=== PATIENT | female | born 1980 | race American Indian/Alaskan Native ===

== ENCOUNTER 2018-06-03 12:38 | Inpatient (IN) | payer MEDICAID ==
[2018-06-03 14:30] LABS: Bilirubin,Urine NEG (Negative); Blood,Urine NEG (Negative); Color,Urine Yellow (Yellow); Mucus,Urine FEW /HPF; Urobilinogen,Urine < 2.0 mg/dL (<2.0)
[2018-06-03 15:58] LABS: Hematocrit 34.6 % (30.3-42.9); Mean Corpuscular HGB Conc 35 % (30-34); Mean Corpuscular Hemoglobin 29 pg (28-32); Mean Corpuscular Volume 85 fl (79-97); Platelet Count 197 K/mm3 (140-440); Red Blood Count 4.07 M/mm3 (3.65-5.03); Red Cell Distribution Width 14.4 % (13.2-15.2)
[2018-06-03 16:13] LABS: Alanine Aminotransferase 41 units/L (7-56)
[2018-06-03] MEDS ORDERED: CALCIUM GLUCONATE IV ONE (17:32)
[2018-06-03] MEDS ORDERED: APRESOLINE IV PRN (17:32)
[2018-06-03] MEDS ORDERED: LACTATED RINGERS 1,000 ML IV SCH (18:00)
[2018-06-03] MEDS ORDERED: PITOCin/NS 20 UNIT/1000ML DRIP 20 UNITS/1,000 ML BAG IV SCH (18:00)
--- NOTE | 2018-06-03 18:00 | History and Physical Report ---
History of Present Illness Date of examination: 06/03/18 Date of admission: 06/03/18 Chief complaint: Patient is a patient of . She is a 37 yo at 35+6 weeks with hx of chronic HTN on baby asa. She has seen [facility] for morbid obesity and AMA. Her GBS +. She has gestational diabetes on Metformin. She was sent over by Dr. Ocasio with elevated BP 150-160/100 Past History Past Medical History: no pertinent history Past Surgical History: no surgical history Family/Genetic History: heart disease, hypertension, other (emphysema ) Social history: single. denies: smoking, alcohol abuse, prescription drug abuse - Obstetrical History Expected Date of Delivery: 07/02/18 Actual Gestation: 35 Week(s) 6 Day(s) : 4 Para: 2 Hx # Term Pregnancies: 2 Number of Pregnancies: 0 Spontaneous Abortions: 1 Induced : 0 Number of Living Children: 2 Medications and Allergies Allergies Allergy/AdvReac Type Severity Reaction Status Date / Time No Known Allergies Allergy Verified 09/08/13 12:49 Home Medications Medication Instructions Recorded Confirmed Last Taken Type ALBUTEROL Inhaler (OR & NICU) 2 puff IH QID PRN #1 inh 09/08/13 Unknown Rx [ProAir HFA Inhaler] Guaifenesin/Codeine Phosphate 10 ml PO QID PRN #4 oz 09/08/13 Unknown Rx [Cheratussin AC Syrup] predniSONE [Deltasone] 50 mg PO QDAY #3 tab 09/08/13 Unknown Rx Active Meds: Active Medications Calcium Gluconate (Calcium Gluconate) 1,000 mg IV ONCE ONE Stop: 06/03/18 17:33 Hydralazine HCl (Apresoline) 5 mg IV Q30MIN PRN PRN Reason: Hypertension Lactated Ringer's (Lactated Ringers) 1,000 mls @ 125 mls/hr IV DIRECT DAVID Magnesium Sulfate (Magnesium Sulfate 40gm/1000ml) 40 gm in 1,000 mls @ 25 mls/ hr IV DIRECT DAVID Magnesium Sulfate (Magnesium Sulfate 4gm/100ml) 4 gm in 100 mls @ 300 mls/hr IV ONCE ONE Stop: 06/03/18 17:51 Oxytocin/Sodium Chloride (Pitocin/Ns 20 Unit/1000ml Drip) 20 units in 1,000 mls @ 0 mls/hr IV TITR DAVID Labetalol HCl (Normodyne) 200 mg PO BID DAVID Review of Systems All systems: negative - Vital Signs Vital signs: Vital Signs Pulse BP 94 H 169/93 06/03/18 13:49 06/03/18 13:49 Temp Pulse Resp BP Pulse Ox 92 H 139/109 06/03/18 17:49 06/03/18 17:49 - Physical Exam Breasts: Positive: normal Cardiovascular: Regular rate, Normal S1 Lungs: Positive: Clear to auscultation, Normal air movement Abdomen: Positive: normal appearance, soft, normal bowel sounds. Negative: distention, tenderness, guarding Genitourinary (Female): Positive: normal external genitalia, normal perenium Vagina: Positive: normal moisture Uterus: Positive: normal size, normal contour Anus/Rectum: Positive: normal perianal skin Deep Tendon Reflex Grade: Normal +2 - Obstetrical FHR: category 1 Results Result Diagrams: 06/03/18 15:16 06/03/18 15:16 Abnormal lab results 06/03/18 06/03/18 Range/Units 15:16 15:16 MCHC 35 H (30-34) % Creatinine 0.6 L (0.7-1.2) mg/dL Lactate Dehydrogenase 248 H (91-180) units/L All other labs normal. Assessment and Plan A/P IUP 35+6 weeks chronic HTN assess for preee 24hr urine collection PIH labs US with BPP and MIKE consult with JAYLENE
[2018-06-03] MEDS ORDERED: MAGNESIUM SULFATE 40GM/1000ML 40 GM/1,000 ML BAG IV SCH (18:30)
[2018-06-03] MEDS ORDERED: MAGNESIUM SULFATE 4GM/100ML 4 GM/100 ML BAG IV ONE (18:32)
[2018-06-03] MEDS ORDERED: CALCIUM GLUCONATE 1,000 MG in NACL 0.9% 100 ML IV ONE (19:00)
[2018-06-03] MEDS ORDERED: BRETHINE IVP ONE (21:07)
--- NOTE | 2018-06-03 21:16 | Ultrasound Report ---
FINAL REPORT EXAM: US OB BPP WO NON-STRESS HISTORY: elevated BP at 35 weeks evaluation of biophysical profile. TECHNIQUE: Grayscale, color flow and M-mode imaging for the purpose of evaluation of biophysical profile. FINDINGS: There is demonstration of a single intrauterine gestation in cephalic position. heart rate is measured at 142 beats per minute. Biophysical profile: breathing movements score 2 movement score 2 posture and tone score 2 Qualitative amniotic fluid volume score 2 IMPRESSION: 1. Single intrauterine gestation in cephalic position with heart rate measured at 142 beats per minute. 2. Biophysical profile 04/24.
[2018-06-03 21:17] LABS: Hematocrit 37.2 % (30.3-42.9); Hemoglobin 12.7 gm/dl (10.1-14.3); Mean Corpuscular HGB Conc 34 % (30-34); Mean Corpuscular Hemoglobin 29 pg (28-32); Mean Corpuscular Volume 85 fl (79-97); Platelet Count 219 K/mm3 (140-440); Red Blood Count 4.36 M/mm3 (3.65-5.03); Red Cell Distribution Width 14.5 % (13.2-15.2)
--- NOTE | 2018-06-03 21:19 | Ultrasound Report ---
FINAL REPORT EXAM: US OB > = 14 WK FETUS ADD GEST HISTORY: elevated BP at 35 weeks TECHNIQUE: Grayscale, color flow and M-mode imaging was performed for evaluation of MIKE. Comparison: Biophysical profile also performed today FINDINGS: Demonstration of a single intrauterine gestation cephalic position with heart rate measured at 139 beats per minute. MIKE is measured at 13.7 centimeters. IMPRESSION: 1. Single intrauterine gestation in cephalic position with heart rate measured at 139 beats per minute. 2. MIKE is measured at 13.7 centimeters.
[2018-06-03] MEDS ORDERED: AMBIEN PO PRN (21:29)
[2018-06-03] MEDS ORDERED: XYLOCAINE TOPICAL 2% 30ML TP ONE (21:42)
[2018-06-03 21:49] LABS: Alanine Aminotransferase 44 units/L (7-56)
[2018-06-03] MEDS ORDERED: VALTREX PO SCH (22:00)
[2018-06-03] MEDS: NORMODYNE PO SCH (22:21)
[2018-06-03 23:33] LABS: Uric Acid 5.6 mg/dL (3.5-7.6)
--- NOTE | 2018-06-04 08:11 | Consultation ---
History of Present Illness - Reason for Consult Consult date: 06/04/18 Past History Social history: single. denies: smoking, alcohol abuse, prescription drug abuse Medications and Allergies Allergies Allergy/AdvReac Type Severity Reaction Status Date / Time No Known Allergies Allergy Verified 09/08/13 12:49 Home Medications Medication Instructions Recorded Confirmed Last Taken Type ALBUTEROL Inhaler (OR & NICU) 2 puff IH QID PRN #1 inh 09/08/13 Unknown Rx [ProAir HFA Inhaler] Guaifenesin/Codeine Phosphate 10 ml PO QID PRN #4 oz 09/08/13 Unknown Rx [Cheratussin AC Syrup] predniSONE [Deltasone] 50 mg PO QDAY #3 tab 09/08/13 Unknown Rx Active Meds: Active Medications Hydralazine HCl (Apresoline) 5 mg IV Q30MIN PRN PRN Reason: Hypertension Lactated Ringer's (Lactated Ringers) 1,000 mls @ 125 mls/hr IV DIRECT DAVID Last Admin: 06/04/18 04:01 Dose: 125 mls/hr Magnesium Sulfate (Magnesium Sulfate 40gm/1000ml) 40 gm in 1,000 mls @ 25 mls/ hr IV DIRECT DAVID Last Admin: 06/03/18 21:33 Dose: 1 gm/hr, 25 mls/hr Labetalol HCl (Normodyne) 200 mg PO BID DAVID Last Admin: 06/03/18 22:21 Dose: 200 mg Metformin HCl (Glucophage) 500 mg PO BIDDIAB DAVID Valacyclovir HCl (Valtrex) 500 mg PO BID DAVID Zolpidem Tartrate (Ambien) 10 mg PO QHS PRN PRN Reason: Insomnia Last Admin: 06/03/18 22:22 Dose: 10 mg Exam - Constitutional Vitals: Temp Pulse Resp BP Pulse Ox 98.1 F 81 18 147/84 95 06/04/18 07:30 06/04/18 08:07 06/04/18 07:30 06/04/18 07:30 06/04/18 08:07 Results - Labs CBC & Chem 7: 06/03/18 20:56 06/03/18 20:56 Labs: Abnormal lab results 06/03/18 06/03/18 06/03/18 Range/Units 15:16 15:16 20:56 MCHC 35 H (30-34) % Creatinine 0.6 L 0.6 L (0.7-1.2) mg/dL Magnesium (1.7-2.3) mg/dL Lactate Dehydrogenase 248 H 246 H (91-180) units/L // Range/Units 04:03 MCHC (30-34) % Creatinine (0.7-1.2) mg/dL Magnesium 4.00 H (1.7-2.3) mg/dL Lactate Dehydrogenase (91-180) units/L Assessment and Plan Pt. seen. No additional recommendations at this time. Full note to follow in paper chart.
[2018-06-04] MEDS: GLUCOPHAGE PO SCH ×2 (09:11→16:52)
[2018-06-04] MEDS: VALTREX PO SCH (10:52)
[2018-06-04] MEDS: NORMODYNE PO SCH ×2 (10:52→22:00)
[2018-06-04] MEDS ORDERED: SUBLIMAZE IV ONE (13:00)
[2018-06-05] MEDS: VALTREX PO SCH ×2 (02:50→10:29)
[2018-06-05] MEDS: GLUCOPHAGE PO SCH (08:18)
[2018-06-05] MEDS: NORMODYNE PO SCH (10:29)
--- NOTE | 2018-06-05 10:46 | Progress Note ---
Assessment and Plan IMP: 1. IUP 36w1d 2. CHTN--with superimposed preeclampsia 3. GDM--on meformin REC: Delivery is recommended secondary to severe (by BPs) preeclampsia. The delivery recommendations were reviewed with Dr Ocasio Subjective - Subjective Interval history: The patient states she is doing well and has no current complaints. She denies headaches, visual changes, chest pain, SOB or RUQ pain. Good movement. Objective - Vital Signs Vital Signs: Vital Signs - 12hr 06/04/18 06/04/18 06/04/18 22:43 22:45 22:50 Temperature Pulse Rate 97 H 75 79 Respiratory Rate Blood Pressure Blood Pressure [Right] O2 Sat by Pulse 84 98 98 Oximetry 06/04/18 06/04/18 06/04/18 22:55 23:00 23:05 Temperature Pulse Rate 66 104 H 66 Respiratory Rate Blood Pressure Blood Pressure [Right] O2 Sat by Pulse 99 98 99 Oximetry 06/04/18 06/04/18 06/04/18 23:06 23:10 23:15 Temperature Pulse Rate 67 79 73 Respiratory Rate Blood Pressure 153/72 Blood Pressure [Right] O2 Sat by Pulse 98 98 Oximetry 06/04/18 06/04/18 06/04/18 23:20 23:25 23:30 Temperature Pulse Rate 74 76 76 Respiratory Rate Blood Pressure Blood Pressure [Right] O2 Sat by Pulse 98 98 99 Oximetry 06/04/18 06/04/18 06/04/18 23:34 23:35 23:40 Temperature Pulse Rate 72 96 H 77 Respiratory Rate Blood Pressure 140/65 Blood Pressure [Right] O2 Sat by Pulse 98 98 Oximetry 06/04/18 06/04/18 06/04/18 23:45 23:50 23:55 Temperature Pulse Rate 79 59 L 81 Respiratory Rate Blood Pressure Blood Pressure [Right] O2 Sat by Pulse 97 89 98 Oximetry 06/05/18 06/05/18 06/05/18 00:00 00:04 00:05 Temperature Pulse Rate 86 82 88 Respiratory Rate Blood Pressure 155/69 Blood Pressure [Right] O2 Sat by Pulse 97 98 Oximetry 06/05/18 06/05/18 06/05/18 00:11 00:16 00:21 Temperature Pulse Rate 86 90 79 Respiratory Rate Blood Pressure Blood Pressure [Right] O2 Sat by Pulse 97 96 96 Oximetry 0906/05/18 06/05/18 00:26 00:32 00:33 Temperature Pulse Rate 92 H 92 H 90 Respiratory Rate Blood Pressure 136/63 Blood Pressure [Right] O2 Sat by Pulse 96 95 Oximetry 06/05/18 06/05/18 06/05/18 00:37 00:42 00:47 Temperature Pulse Rate 92 H 97 H 91 H Respiratory Rate Blood Pressure Blood Pressure [Right] O2 Sat by Pulse 96 97 97 Oximetry 06/05/18 06/05/18 06/05/18 00:52 00:57 01:02 Temperature Pulse Rate 86 98 H 89 Respiratory Rate Blood Pressure Blood Pressure [Right] O2 Sat by Pulse 96 95 97 Oximetry 06/05/18 06/05/18 06/05/18 01:07 01:12 01:17 Temperature Pulse Rate 90 91 H 84 Respiratory Rate Blood Pressure Blood Pressure [Right] O2 Sat by Pulse 96 95 95 Oximetry 06/05/18 06/05/18 06/05/18 01:22 01:27 01:32 Temperature Pulse Rate 87 81 84 Respiratory Rate Blood Pressure Blood Pressure [Right] O2 Sat by Pulse 97 96 97 Oximetry 06/05/18 06/05/18 06/05/18 01:37 01:41 01:42 Temperature Pulse Rate 91 H 95 H 83 Respiratory Rate Blood Pressure Blood Pressure [Right] O2 Sat by Pulse 97 94 96 Oximetry 06/05/18 06/05/18 06/05/18 01:46 01:47 01:52 Temperature Pulse Rate 85 86 92 H Respiratory Rate Blood Pressure 194/79 Blood Pressure [Right] O2 Sat by Pulse 90 94 97 Oximetry 06/05/18 06/05/18 06/05/18 01:57 02:02 02:07 Temperature Pulse Rate 86 82 82 Respiratory Rate Blood Pressure 135/63 Blood Pressure [Right] O2 Sat by Pulse 96 99 98 Oximetry 06/05/18 06/05/18 06/05/18 02:11 02:12 02:17 Temperature Pulse Rate 87 78 85 Respiratory Rate Blood Pressure Blood Pressure [Right] O2 Sat by Pulse 84 97 97 Oximetry 06/05/18 06/05/18 06/05/18 02:22 02:27 02:32 Temperature Pulse Rate 83 91 H 80 Respiratory Rate Blood Pressure Blood Pressure [Right] O2 Sat by Pulse 100 96 97 Oximetry 09/06/05/18 06/05/18 02:37 02:42 02:47 Temperature Pulse Rate 82 82 76 Respiratory Rate Blood Pressure 137/72 Blood Pressure [Right] O2 Sat by Pulse 97 97 Oximetry 06/05/18 06/05/18 06/05/18 03:19 03:24 03:29 Temperature Pulse Rate 73 79 76 Respiratory Rate Blood Pressure Blood Pressure [Right] O2 Sat by Pulse 98 98 98 Oximetry 06/05/18 06/05/18 06/05/18 03:34 03:39 03:44 Temperature Pulse Rate 87 75 71 Respiratory Rate Blood Pressure Blood Pressure [Right] O2 Sat by Pulse 100 97 97 Oximetry 06/05/18 06/05/18 06/05/18 03:47 03:49 03:54 Temperature Pulse Rate 73 73 72 Respiratory Rate Blood Pressure 144/71 Blood Pressure [Right] O2 Sat by Pulse 97 97 Oximetry 06/05/18 06/05/18 06/05/18 03:59 04:04 04:05 Temperature Pulse Rate 73 70 71 Respiratory Rate Blood Pressure Blood Pressure [Right] O2 Sat by Pulse 97 95 94 Oximetry 06/05/18 06/05/18 06/05/18 04:09 04:14 04:16 Temperature Pulse Rate 72 77 73 Respiratory Rate Blood Pressure Blood Pressure [Right] O2 Sat by Pulse 94 93 94 Oximetry 06/05/18 06/05/18 06/05/18 04:19 04:24 04:29 Temperature Pulse Rate 74 81 73 Respiratory Rate Blood Pressure Blood Pressure [Right] O2 Sat by Pulse 95 97 97 Oximetry 06/05/18 06/05/18 06/05/18 04:32 04:34 04:39 Temperature Pulse Rate 70 74 76 Respiratory Rate Blood Pressure Blood Pressure [Right] O2 Sat by Pulse 93 96 97 Oximetry 06/05/18 06/05/18 06/05/18 04:41 04:44 04:47 Temperature Pulse Rate 89 77 72 Respiratory Rate Blood Pressure 158/74 Blood Pressure [Right] O2 Sat by Pulse 94 98 Oximetry 06/05/18 06/05/18 06/05/18 04:49 04:54 04:59 Temperature Pulse Rate 70 71 68 Respiratory Rate Blood Pressure Blood Pressure [Right] O2 Sat by Pulse 98 98 98 Oximetry 06/05/18 06/05/18 06/05/18 05:04 05:09 05:14 Temperature Pulse Rate 78 70 70 Respiratory Rate Blood Pressure Blood Pressure [Right] O2 Sat by Pulse 97 97 97 Oximetry 06/05/18 06/05/18 06/05/18 05:19 05:24 05:29 Temperature Pulse Rate 70 71 74 Respiratory Rate Blood Pressure Blood Pressure [Right] O2 Sat by Pulse 97 97 97 Oximetry 06/05/18 06/05/18 06/05/18 05:33 05:34 05:39 Temperature Pulse Rate 59 L 78 76 Respiratory Rate Blood Pressure Blood Pressure [Right] O2 Sat by Pulse 80 L 98 98 Oximetry 06/05/18 06/05/18 06/05/18 05:44 05:47 05:49 Temperature Pulse Rate 72 73 78 Respiratory Rate Blood Pressure 140/69 Blood Pressure [Right] O2 Sat by Pulse 97 98 Oximetry 06/05/18 06/05/18 06/05/18 05:54 05:59 06:04 Temperature Pulse Rate 73 76 73 Respiratory Rate Blood Pressure Blood Pressure [Right] O2 Sat by Pulse 98 93 97 Oximetry 06/05/18 06/05/18 06/05/18 06:09 06:12 06:14 Temperature Pulse Rate 71 95 H 79 Respiratory Rate Blood Pressure Blood Pressure [Right] O2 Sat by Pulse 94 89 98 Oximetry 06/05/18 06/05/18 06/05/18 06:35 06:40 06:45 Temperature Pulse Rate 78 71 68 Respiratory Rate Blood Pressure Blood Pressure [Right] O2 Sat by Pulse 97 98 98 Oximetry 06/05/18 06/05/18 06/05/18 06:47 06:50 06:55 Temperature Pulse Rate 64 83 72 Respiratory Rate Blood Pressure 145/75 Blood Pressure [Right] O2 Sat by Pulse 99 98 Oximetry 06/05/18 06/05/18 06/05/18 07:00 07:05 07:10 Temperature Pulse Rate 70 74 76 Respiratory Rate Blood Pressure Blood Pressure [Right] O2 Sat by Pulse 97 97 99 Oximetry 06/05/18 06/05/18 06/05/18 07:15 07:19 07:20 Temperature Pulse Rate 80 74 74 Respiratory Rate Blood Pressure Blood Pressure [Right] O2 Sat by Pulse 98 90 98 Oximetry 06/05/18 06/05/18 06/05/18 07:25 07:30 07:35 Temperature Pulse Rate 73 76 75 Respiratory Rate Blood Pressure Blood Pressure [Right] O2 Sat by Pulse 98 98 99 Oximetry 06/05/18 06/05/18 06/05/18 07:40 07:41 07:48 Temperature 98.2 F Pulse Rate 67 73 72 Respiratory 18 Rate Blood Pressure 158/82 155/75 Blood Pressure 158/82 [Right] O2 Sat by Pulse 97 Oximetry 06/05/18 06/05/18 06/05/18 08:49 09:47 10:29 Temperature Pulse Rate 78 79 86 Respiratory Rate Blood Pressure 152/95 168/86 122/70 Blood Pressure [Right] O2 Sat by Pulse Oximetry 06/05/18 10:30 Temperature Pulse Rate 86 Respiratory Rate Blood Pressure 122/70 Blood Pressure [Right] O2 Sat by Pulse Oximetry - Exam Abdomen: Present: soft - Labs Labs: Abnormal Labs 06/03/18 06/03/18 06/03/18 15:16 15:16 20:56 MCHC 35 H Creatinine 0.6 L 0.6 L POC Glucose Magnesium Lactate Dehydrogenase 248 H 246 H Ur Total Protein 24 Hr Urine Total Protein 06/04/18 06/04/18 06/04/18 04:03 08:49 12:46 MCHC Creatinine POC Glucose 109 H Magnesium 4.00 H 3.30 H Lactate Dehydrogenase Ur Total Protein 24 Hr Urine Total Protein 06/04/18 06/05/18 06/05/18 19:50 00:31 05:41 MCHC Creatinine POC Glucose 133 H Magnesium 2.40 H Lactate Dehydrogenase Ur Total Protein 24 Hr 585.00 H Urine Total Protein 13 H 06/05/18 06:18 MCHC Creatinine POC Glucose 68 L Magnesium Lactate Dehydrogenase Ur Total Protein 24 Hr Urine Total Protein Laboratory Results - last 24 hr 06/03/18 06/04/18 06/04/18 20:05 12:46 13:03 POC Glucose 92 Magnesium 3.30 H Urine Total Volume Ur Total Protein 24 Hr Urine Total Protein RPR Nonreactive 06/04/18 06/04/18 06/04/18 16:19 19:50 20:17 POC Glucose 98 95 Magnesium 2.40 H Urine Total Volume Ur Total Protein 24 Hr Urine Total Protein RPR 06/05/18 06/05/18 06/05/18 00:09 00:31 05:41 POC Glucose 133 H Magnesium 2.10 Urine Total Volume 4500 Ur Total Protein 24 Hr 585.00 H Urine Total Protein 13 H RPR 06/05/18 06:18 POC Glucose 68 L Magnesium Urine Total Volume Ur Total Protein 24 Hr Urine Total Protein RPR
--- NOTE | 2018-06-05 13:05 | Progress Note ---
Assessment and Plan A: IUP at 36w1d Chronic Hypertension now with superimposed Preeclampsia but patient declines delivery at this time Morbid Obesity Gestational Diabetes Advanced Maternal Age P: Pt declines induction of labor and inpatient monitoring against medical advice She has MFM appt on Sun06/07/18 and OB appt on 06/10/18 with Induction scheduled for the evening from 06/10/18 Pt acknowledges and accepts risks of declining induction Subjective - Subjective Date of service: 06/05/18 Principal diagnosis: IUP at 36 wks, Chronic HTN with Superimposed Preeclampsia Interval history: Pt denies headache, blurry vision or RUQ pain. Informed that 24 hr urine increased from last week, and that MFM has recommended delivery. Pt feels that extenuating circumstances are the cause of her elevated blood pressures and increased 24 hr urine protein and declines induction today or continued hospitalization despite knowledge of possible progression to eclampsia and adverse or maternal outcome. She requests frequent outpatient follow up with induction at 37 wks. She is aware that this decision is against the medical advice of the MFM specialists, acknowledges understanding but continues to decline induction today. Patient reports: movement normal, no loss of fluid, no vaginal bleeding, no contractions Objective - Vital Signs Vital Signs: Vital Signs - 12hr 06/05/18 06/05/18 06/05/18 01:07 01:12 01:17 Temperature Pulse Rate 90 91 H 84 Respiratory Rate Blood Pressure Blood Pressure [Right] O2 Sat by Pulse 96 95 95 Oximetry 06/05/18 06/05/18 06/05/18 01:22 01:27 01:32 Temperature Pulse Rate 87 81 84 Respiratory Rate Blood Pressure Blood Pressure [Right] O2 Sat by Pulse 97 96 97 Oximetry 06/05/18 06/05/18 06/05/18 01:37 01:41 01:42 Temperature Pulse Rate 91 H 95 H 83 Respiratory Rate Blood Pressure Blood Pressure [Right] O2 Sat by Pulse 97 94 96 Oximetry 06/05/18 06/05/18 06/05/18 01:46 01:47 01:52 Temperature Pulse Rate 85 86 92 H Respiratory Rate Blood Pressure 194/79 Blood Pressure [Right] O2 Sat by Pulse 90 94 97 Oximetry 06/05/18 06/05/18 06/05/18 01:57 02:02 02:07 Temperature Pulse Rate 86 82 82 Respiratory Rate Blood Pressure 135/63 Blood Pressure [Right] O2 Sat by Pulse 96 99 98 Oximetry 06/05/18 06/05/18 06/05/18 02:11 02:12 02:17 Temperature Pulse Rate 87 78 85 Respiratory Rate Blood Pressure Blood Pressure [Right] O2 Sat by Pulse 84 97 97 Oximetry 06/05/18 06/05/18 06/05/18 02:22 02:27 02:32 Temperature Pulse Rate 83 91 H 80 Respiratory Rate Blood Pressure Blood Pressure [Right] O2 Sat by Pulse 100 96 97 Oximetry 06/05/18 06/05/18 06/05/18 02:37 02:42 02:47 Temperature Pulse Rate 82 82 76 Respiratory Rate Blood Pressure 137/72 Blood Pressure [Right] O2 Sat by Pulse 97 97 Oximetry 06/05/18 06/05/18 06/05/18 03:19 03:24 03:29 Temperature Pulse Rate 73 79 76 Respiratory Rate Blood Pressure Blood Pressure [Right] O2 Sat by Pulse 98 98 98 Oximetry 06/05/18 06/05/18 06/05/18 03:34 03:39 03:44 Temperature Pulse Rate 87 75 71 Respiratory Rate Blood Pressure Blood Pressure [Right] O2 Sat by Pulse 100 97 97 Oximetry 06/05/18 06/05/18 06/05/18 03:47 03:49 03:54 Temperature Pulse Rate 73 73 72 Respiratory Rate Blood Pressure 144/71 Blood Pressure [Right] O2 Sat by Pulse 97 97 Oximetry 06/05/18 06/05/18 06/05/18 03:59 04:04 04:05 Temperature Pulse Rate 73 70 71 Respiratory Rate Blood Pressure Blood Pressure [Right] O2 Sat by Pulse 97 95 94 Oximetry 06/05/18 06/05/18 06/05/18 04:09 04:14 04:16 Temperature Pulse Rate 72 77 73 Respiratory Rate Blood Pressure Blood Pressure [Right] O2 Sat by Pulse 94 93 94 Oximetry 06/05/18 06/05/18 06/05/18 04:19 04:24 04:29 Temperature Pulse Rate 74 81 73 Respiratory Rate Blood Pressure Blood Pressure [Right] O2 Sat by Pulse 95 97 97 Oximetry 06/05/18 06/05/18 06/05/18 04:32 04:34 04:39 Temperature Pulse Rate 70 74 76 Respiratory Rate Blood Pressure Blood Pressure [Right] O2 Sat by Pulse 93 96 97 Oximetry 06/05/18 06/05/1818 04:41 04:44 04:47 Temperature Pulse Rate 89 77 72 Respiratory Rate Blood Pressure 158/74 Blood Pressure [Right] O2 Sat by Pulse 94 98 Oximetry 06/05/18 06/05/18 06/05/18 04:49 04:54 04:59 Temperature Pulse Rate 70 71 68 Respiratory Rate Blood Pressure Blood Pressure [Right] O2 Sat by Pulse 98 98 98 Oximetry 06/05/18 06/05/18 06/05/18 05:04 05:09 05:14 Temperature Pulse Rate 78 70 70 Respiratory Rate Blood Pressure Blood Pressure [Right] O2 Sat by Pulse 97 97 97 Oximetry 06/05/18 06/05/18 06/05/18 05:19 05:24 05:29 Temperature Pulse Rate 70 71 74 Respiratory Rate Blood Pressure Blood Pressure [Right] O2 Sat by Pulse 97 97 97 Oximetry 06/05/18 06/05/18 06/05/18 05:33 05:34 05:39 Temperature Pulse Rate 59 L 78 76 Respiratory Rate Blood Pressure Blood Pressure [Right] O2 Sat by Pulse 80 L 98 98 Oximetry 06/05/18 06/05/18 06/05/18 05:44 05:47 05:49 Temperature Pulse Rate 72 73 78 Respiratory Rate Blood Pressure 140/69 Blood Pressure [Right] O2 Sat by Pulse 97 98 Oximetry 06/05/18 06/05/18 06/05/18 05:54 05:59 06:04 Temperature Pulse Rate 73 76 73 Respiratory Rate Blood Pressure Blood Pressure [Right] O2 Sat by Pulse 98 93 97 Oximetry 06/05/18 06/05/18 06/05/18 06:09 06:12 06:14 Temperature Pulse Rate 71 95 H 79 Respiratory Rate Blood Pressure Blood Pressure [Right] O2 Sat by Pulse 94 89 98 Oximetry 06/05/18 06/05/18 06/05/18 06:35 06:40 06:45 Temperature Pulse Rate 78 71 68 Respiratory Rate Blood Pressure Blood Pressure [Right] O2 Sat by Pulse 97 98 98 Oximetry 06/05/18 06/05/18 06/05/18 06:47 06:50 06:55 Temperature Pulse Rate 64 83 72 Respiratory Rate Blood Pressure 145/75 Blood Pressure [Right] O2 Sat by Pulse 99 98 Oximetry 06/05/18 06/05/18 06/05/18 07:00 07:05 07:10 Temperature Pulse Rate 70 74 76 Respiratory Rate Blood Pressure Blood Pressure [Right] O2 Sat by Pulse 97 97 99 Oximetry 06/05/18 06/05/18 06/05/18 07:15 07:19 07:20 Temperature Pulse Rate 80 74 74 Respiratory Rate Blood Pressure Blood Pressure [Right] O2 Sat by Pulse 98 90 98 Oximetry 06/05/18 06/05/18 06/05/18 07:25 07:30 07:35 Temperature Pulse Rate 73 76 75 Respiratory Rate Blood Pressure Blood Pressure [Right] O2 Sat by Pulse 98 98 99 Oximetry 06/05/18 06/05/18 06/05/18 07:40 07:41 07:48 Temperature 98.2 F Pulse Rate 67 73 72 Respiratory 18 Rate Blood Pressure 158/82 155/75 Blood Pressure 158/82 [Right] O2 Sat by Pulse 97 Oximetry 06/05/18 06/05/18 06/05/18 08:49 09:47 10:29 Temperature Pulse Rate 78 79 86 Respiratory Rate Blood Pressure 152/95 168/86 122/70 Blood Pressure [Right] O2 Sat by Pulse Oximetry 06/05/18 06/05/18 06/05/18 10:30 10:46 11:47 Temperature Pulse Rate 86 85 80 Respiratory Rate Blood Pressure 122/70 140/76 152/74 Blood Pressure [Right] O2 Sat by Pulse Oximetry - Exam Breasts: deferred Cardiovascular: Regular rate Lungs: Clear to auscultation Abdomen: Present: soft (obese, gravid ) Uterus: Present: normal (gravid ) FHR: auscultation normal Uterine Contraction Monitor Mode: External Uterine Contraction Pattern: Absent Uterine Tone Measurement Phase: Resting Extremities: edema - Labs Labs: Abnormal Labs 06/03/18 06/03/18 06/03/18 15:16 15:16 20:56 MCHC 35 H Creatinine 0.6 L 0.6 L POC Glucose Magnesium Lactate Dehydrogenase 248 H 246 H Ur Total Protein 24 Hr Urine Total Protein 06/04/18 06/04/18 06/04/18 04:03 08:49 12:46 MCHC Creatinine POC Glucose 109 H Magnesium 4.00 H 3.30 H Lactate Dehydrogenase Ur Total Protein 24 Hr Urine Total Protein 06/04/18 06/05/18 06/05/18 19:50 00:31 05:41 MCHC Creatinine POC Glucose 133 H Magnesium 2.40 H Lactate Dehydrogenase Ur Total Protein 24 Hr 585.00 H Urine Total Protein 13 H 06/05/18 06:18 MCHC Creatinine POC Glucose 68 L Magnesium Lactate Dehydrogenase Ur Total Protein 24 Hr Urine Total Protein Laboratory Results - last 24 hr 06/04/18 06/04/18 06/04/18 12:46 13:03 16:19 POC Glucose 92 98 Magnesium 3.30 H Urine Total Volume Ur Total Protein 24 Hr Urine Total Protein 06/04/18 06/04/18 06/05/18 19:50 20:17 00:09 POC Glucose 95 Magnesium 2.40 H 2.10 Urine Total Volume Ur Total Protein 24 Hr Urine Total Protein 06/05/18 06/05/18 06/05/18 00:31 05:41 06:18 POC Glucose 133 H 68 L Magnesium Urine Total Volume 4500 Ur Total Protein 24 Hr 585.00 H Urine Total Protein 13 H 06/05/18 10:40 POC Glucose 77 Magnesium Urine Total Volume Ur Total Protein 24 Hr Urine Total Protein
--- NOTE | 2018-06-05 13:07 | Discharge Summary ---
Providers - Providers Date of Admission: 06/04/18 08:26 Date of discharge: 06/05/18 Attending physician: KAYLA BARRETT MD 06/03/18 18:24 Consult to Physician [CONS] Urgent Comment: Consulting Provider: TRAY FREEMAN Physician Instructions: Reason For Exam: [facility] Primary care physician: KAYLA BARRETT MD Hospitalization Reason for admission: other (elevated blood pressure) Hospital course: Pt was initially admitted for elevated blood pressures at 36 wks with a h/o chronic hypertension. She received magnesium sulfate for seizure prophylaxis initially, and collected a 24 hr urine protein. She was diagnosed with superimposed preeclampsia and informed of a recommendation for delivery. She declined the induction against MFM advice, as well as inpatient management. Pt is currently scheduled for MFM appt on 06/07/18, and OB appt on 06/10/18 and induction on the evening of 06/10/18. She is advised that is she should change her mind and agree to delivery, present to labor and delivery at any time. She was also given strict PI precautions and told to maintain bedrest. Condition at discharge: Stable Disposition: [id number] TO HOME OR SELFCARE - Discharge Diagnoses (1) Preeclampsia complicating hypertension Status: Acute (2) Obesity (BMI 35.0-39.9 without comorbidity) Status: Acute (3) Morbid obesity Status: Acute Plan - Provider Discharge Summary Activity: routine, no sex for 6 weeks, no heavy lifting 4 weeks, no strenuous exercise, other (Bedrest ) Diet: routine Instructions: routine Additional instructions: [] Smoking cessation referral if applicable(refer to patient education folder for contact #) [] Refer to [facility] Booklet Call your doctor immediately for: * Fever > 100.5 * Heavy vaginal bleeding ( >1 pad per hour) * Severe persistent headache * Shortness of breath * Reddened, hot, painful area to leg or breast * Drainage or odor from incision. * Keep incision clean and dry at all times and follow doctor's instructions regarding bathing/showering - Follow up plan Follow up: KAYLA BARRETT MD [Primary Care Provider] - 06/10/18 (MFM on Sunday, June 05, 2018 OB appt on Sun, 2017)
[2018-06-05 15:35] VITALS: BP 163/86
== END 2018-06-05 14:16 | disposition home or self-care (01) | DRG 781 ==
LOC: TRG 12:38 → LD 13:41 → TRG 20:21 → OBSVTOIN 06-04 08:26
PROVIDERS: ADMIT Obstetrics & Gynecology; ATTEND Obstetrics & Gynecology
DX: O14.13 Severe pre-eclampsia, third trimester (principal); O24.415 Gestational diabetes mellitus in pregnancy, controlled by oral hypoglycemic drugs; O99.820 Streptococcus B carrier state complicating pregnancy; O99.213 Obesity complicating pregnancy, third trimester; E66.01 Morbid (severe) obesity due to excess calories; Z68.41 Body mass index [BMI] 40.0-44.9, adult; Z3A.35 35 weeks gestation of pregnancy
CPT/HCPCS: 36415; 76810; 76815; 76819; 81001; 82565; 82962; 83615; 83735; 84156; 84450; 84460; 84550; 85027; 86592; 86850; 86900; 86901; G0378; J0360; J0610; J2590; J3105; J3475; J7120

== ENCOUNTER 2019-06-18 07:59 | Emergency (ER) | payer MEDICAID, OTHER ==
[2019-06-18] MEDS ORDERED: METOPROLOL TARTRATE 50 MG TAB PO ONE (08:46)
--- NOTE | 2019-06-18 09:01 | Emergency Department Report ---
ED General Adult HPI - General Chief complaint: Upper Respiratory Infection Stated complaint: BODY ACHE/SOB/CRAMPS Time Seen by Provider: 06/18/19 08:38 Source: patient Mode of arrival: Ambulatory Limitations: No Limitations - History of Present Illness Initial comments: Patient is a 38-year-old asthmatic female who states if approximate 5 days ago she started having some left lower back pain. Patient was seen in an outside emergency department had a CT of abdomen and pelvis which was negative for obstructive uropathy. Patient also states there is no urinary tract infection present. Patient started on tramadol. Patient states that since that time she is now having muscle aches and cramps in her bilateral legs as well as a headache. Patient states she has a sinus pressure with some mild nausea vomiting however she states she doesn't feel congested. She denies any runny nose cough but does state that she has a feeling as though she has a fever but has not actually had elevation of her temperature. Patient has a history of hypertension as been noncompliant with her meds. Patient denies chest pain focal neurological deficits at this time. - Related Data Home Medications Medication Instructions Recorded Confirmed Last Taken Pnv,Calcium 72/Iron/Folic Acid 1 tab PO DAILY 06/04/18 06/11/18 06/10/18 09:00 [Pnv Plus Multivit Tab] 1 TAB Metformin HCl 500 mg PO DAILY 06/11/18 06/11/18 06/10/18 09:00 500 MG Previous Rx's Medication Instructions Recorded Last Taken Type Ibuprofen [Motrin 600 MG tab] 600 mg PO Q6H PRN #30 tablet 06/13/18 Unknown Rx Labetalol HCl 200 mg PO BID #60 tablet 06/13/18 Unknown Rx Ketorolac [Toradol] 10 mg PO Q6H PRN #12 tablet 06/18/19 Unknown Rx Metoprolol [Lopressor] 25 mg PO BID #60 tablet 06/18/19 Unknown Rx Ondansetron [Zofran Odt] 4 mg PO Q8HR #10 tab.rapdis 06/18/19 Unknown Rx methOCARBAMOL [Robaxin TAB] 500 mg PO Q6H PRN #14 tablet 06/18/19 Unknown Rx Allergies Allergy/AdvReac Type Severity Reaction Status Date / Time No Known Allergies Allergy Verified 09/08/13 12:49 ED Review of Systems ROS: Stated complaint: BODY ACHE/SOB/CRAMPS Other details as noted in HPI Comment: All other systems reviewed and negative ED Past Medical Hx - Past Medical History Hx Hypertension: Yes Hx Congestive Heart Failure: No Hx Diabetes: Yes Hx Deep Vein Thrombosis: No Hx Renal Disease: No Hx Sickle Cell Disease: No Hx Seizures: No Hx Asthma: No Hx COPD: No Hx HIV: No - Surgical History Additional Surgical History: LEFT FOOT SURGERY - Social History Smoking Status: Never Smoker Substance Use Type: Alcohol - Medications Home Medications: Home Medications Medication Instructions Recorded Confirmed Last Taken Type Pnv,Calcium 72/Iron/Folic Acid 1 tab PO DAILY 06/04/18 06/11/18 06/10/18 09:00 History [Pnv Plus Multivit Tab] 1 TAB Metformin HCl 500 mg PO DAILY 06/11/18 06/11/18 06/10/18 09:00 History 500 MG Ibuprofen [Motrin 600 MG tab] 600 mg PO Q6H PRN #30 tablet 06/13/18 Unknown Rx Labetalol HCl 200 mg PO BID #60 tablet 06/13/18 Unknown Rx Ketorolac [Toradol] 10 mg PO Q6H PRN #12 tablet 06/18/19 Unknown Rx Metoprolol [Lopressor] 25 mg PO BID #60 tablet 06/18/19 Unknown Rx Ondansetron [Zofran Odt] 4 mg PO Q8HR #10 tab.rapdis 06/18/19 Unknown Rx methOCARBAMOL [Robaxin TAB] 500 mg PO Q6H PRN #14 tablet 06/18/19 Unknown Rx ED Physical Exam - General Limitations: No Limitations General appearance: alert, in no apparent distress - Head Head exam: Present: atraumatic, normocephalic, other (no sinus tenderness on palpation) - Eye Eye exam: Present: normal appearance, PERRL, EOMI - ENT ENT exam: Present: mucous membranes moist - Neck Neck exam: Present: normal inspection - Respiratory Respiratory exam: Present: normal lung sounds bilaterally. Absent: respiratory distress, wheezes, rales, rhonchi - Cardiovascular Cardiovascular Exam: Present: regular rate, normal rhythm, normal heart sounds. Absent: systolic murmur, diastolic murmur, rubs, gallop - GI/Abdominal GI/Abdominal exam: Present: soft, normal bowel sounds. Absent: distended, tenderness, guarding, rebound, rigid - Extremities Exam Extremities exam: Present: normal inspection - Back Exam Back exam: Present: normal inspection - Neurological Exam Neurological exam: Present: alert, oriented X3 - Psychiatric Psychiatric exam: Present: normal affect, normal mood - Skin Skin exam: Present: warm, dry, intact, normal color. Absent: rash ED Course Vital Signs 06/18/19 08:32 Temperature 98.7 F Pulse Rate 103 H Respiratory 18 Rate Blood Pressure 176/105 O2 Sat by Pulse 99 Oximetry ED Medical Decision Making - Medical Decision Making Patient is a 38-year-old female who is here for body aches and subjective fevers. Does have been present for approximate 5 days. Patient likely with a viral syndrome/flulike illness. Patient states the pain is worse with movement she'll be started on medication for symptomatic relief including a muscle relaxant. Patient also has a mild headache and a pressure-like sensation especially in her mid face. The patient is noncompliant with her hypertensive medications as she has run out of her medications not have proper follow-up. Patient given follow-up with primary care and will be restarted on her blood pressure medicines. Critical care attestation.: If time is entered above; I have spent that time in minutes in the direct care of this critically ill patient, excluding procedure time. ED Disposition Clinical Impression: Hypertensive urgency, Myalgia, Viral syndrome Disposition: TO HOME OR SELFCARE Is pt being admited?: No Does the pt Need Aspirin: No Condition: Stable Instructions: Hypertension (ED), Viral Syndrome (ED), Musculoskeletal Pain (ED) Referrals: LEAH SINGLETON MD [Staff Physician] - 3-5 Days Time of Disposition: 09:01
[2019-06-18 09:14] VITALS: BP 145/90
== END 2019-06-18 09:42 | disposition home or self-care (01) ==
LOC: ED 07:59
DX: I16.0 Hypertensive urgency (principal); R11.2 Nausea with vomiting, unspecified; M79.10 Myalgia, unspecified site; B34.9 Viral infection, unspecified; I10 Essential (primary) hypertension; E11.9 Type 2 diabetes mellitus without complications
CPT/HCPCS: 99281